=== PATIENT | female | born 1945 | race American Indian/Alaskan Native ===

== ENCOUNTER 2018-07-09 22:41 | Emergency (ER) | payer MEDICARE ==
[2018-07-09] MEDS ORDERED: CALCIUM CHLORIDE IV ONE (22:50)
[2018-07-09] MEDS ORDERED: XYLOCAINE CARDIAC IV ONE (22:50)
[2018-07-09] MEDS ORDERED: ADRENALIN ONE (22:50)
[2018-07-09] MEDS ORDERED: CORDARONE IV ONE (22:50)
--- NOTE | 2018-07-09 23:01 | Emergency Department Report ---
ED CPR HPI - General Stated Complaint: CARDIAC ARREST Time Seen by Provider: 07/09/18 22:54 Source: family, EMS - History of Present Illness Initial Comments: Patient is 72 years old female with history of end-stage renal disease on hemodialysis. Patient brought to the emergency room via EMS in full cardiac arrest, CPR in progress. EMS stated that patient was down approximately 10 minutes prior to ACLS. EMS intubated patient at the scene. Initial rhythm was asystole. ACLS initiated by EMS and continued in the emergency room. ET tube placement confirmed by good breath sounds on both sides with capnometry. Patient had one episode of ventricular fibrillation for which she received 200 J and also 300 mg of amiodarone. Assuming the possibility of hyperkalemia secondary to end stage renal disease, patient received calcium chloride and bicarbonate. Patient remained in asystole. Patient pronounced at 10:52 PM. For further information please refer to code sheet. MD Complaint: stopped breathing -: minute(s) (10), hour(s) (20) Place: home Bystander CPR Performed: No Downtime Before ACLS Arrival (mins): 10 Initial Findings in the Field: unresponsive, no pulse, systole ROSC in the Field: No Associated Injuries: No - Related Data Previous Rx's Medication Instructions Recorded Last Taken Type Meclizine [Antivert] 25 mg PO Q6H #60 tablet 07/03/17 Unknown Rx Ondansetron [Zofran TAB] 4 mg PO Q8HR PRN #30 tablet 07/03/17 Unknown Rx Allergies Allergy/AdvReac Type Severity Reaction Status Date / Time ampicillin Allergy Intermediate Rash Verified 01/19/15 15:26 erythromycin base Allergy Intermediate Rash Verified 01/19/15 15:27 [Erythromycin Base] ED Review of Systems ROS: Stated complaint: CARDIAC ARREST Other details as noted in HPI Comment: Unobtainable due to pts medical conditions ED Past Medical Hx - Past Medical History Hx Hypertension: Yes Hx CVA: Yes Hx Diabetes: Yes Hx Renal Disease: Yes Hx Seizures: Yes Hx Asthma: Yes - Surgical History Additional Surgical History: VAS cath to right chest. fistula to left upper arm 03/2016 - Social History Smoking Status: Never Smoker - Medications Home Medications: Home Medications Medication Instructions Recorded Confirmed Last Taken Type Meclizine [Antivert] 25 mg PO Q6H #60 tablet 07/03/17 Unknown Rx Ondansetron [Zofran TAB] 4 mg PO Q8HR PRN #30 tablet 07/03/17 Unknown Rx ED Physical Exam - General General appearance: other (intubated, CPR in progress) - Eye Pupils: Present: other (fixed and dilated) - ENT ENT exam: Present: normal exam - Neck Neck exam: Present: normal inspection - Respiratory Respiratory exam: Present: other (no spontaneous breathing.) - Cardiovascular Cardiovascular Exam: Present: other (no spontaneous heart tones.) - GI/Abdominal GI/Abdominal exam: Present: soft. Absent: distended - Neurological Exam Neurological exam: Present: other (intubated) - Skin Skin exam: Present: warm, dry, intact ED Medical Decision Making - Medical Decision Making Ms Sequeira is 72 years old female with history of end-stage renal disease on hemodialysis. Patient brought to the emergency room via EMS in full cardiac arrest, CPR in progress. EMS stated that patient was down approximately 10 minutes prior to ACLS. EMS intubated patient at the scene. Initial rhythm was asystole. ACLS initiated by EMS and continued in the emergency room. ET tube placement confirmed by good breath sounds on both sides with capnometry. Patient had one episode of ventricular fibrillation for which she received 200 J and also 300 mg of amiodarone. Assuming the possibility of hyperkalemia secondary to end stage renal disease, patient received calcium chloride and bicarbonate. Patient remained in asystole. Patient pronounced at 10:52 PM. For further information please refer to code sheet. Critical Care Time: Yes Critical care time in (mins) excluding proc time.: 30 Critical care attestation.: If time is entered above; I have spent that time in minutes in the direct care of this critically ill patient, excluding procedure time. ED Disposition Clinical Impression: Cardiopulmonary arrest Disposition: DC-20 Is pt being admited?: No Condition: Stable
== END 2018-07-10 03:54 ==
LOC: ED 22:41
DX: I46.9 Cardiac arrest, cause unspecified (principal); I13.2 Hypertensive heart and chronic kidney disease with heart failure and with stage 5 chronic kidney disease, or end stage renal disease; E11.22 Type 2 diabetes mellitus with diabetic chronic kidney disease; N18.6 End stage renal disease; Z99.2 Dependence on renal dialysis; J45.909 Unspecified asthma, uncomplicated; Z88.1 Allergy status to other antibiotic agents
CPT/HCPCS: 31500; 82962; 99285; J0171; J0282; J2001